=== PATIENT | female | born 1965 | race Caucasian/White ===

== ENCOUNTER 2016-06-05 07:19 | Day surgery (SDC) | payer OTHER ==
[2016-06-05] MEDS ORDERED: LIDOCAINE 2% MDV (20MG/ML) 20ML VIAL IV ONE (14:00)
[2016-06-05] MEDS ORDERED: MIDAZOLAM HCL 2MG/2ML VIAL IV ONE (14:00)
[2016-06-05] MEDS ORDERED: PROPOFOL 10 MG/ML VIAL IV ONE (14:00)
--- NOTE | 2016-06-08 16:43 | Operative Note ---
DATE OF SURGERY: 06/05/2016 Surgeon: Irineo Jensen D.O. REFERRING PHYSICIAN: Joey Sanders PREOPERATIVE DIAGNOSIS: Screening colonoscopy. POSTOPERATIVE DIAGNOSIS: Screening colonoscopy. OPERATION: COLONOSCOPY to the cecum. PROCEDURE: The patient is a 51-year-old female who was brought to the Endoscopy Suite, placed in the supine position and appropriate monitoring was placed including nasal O2, pulse oximetry and blood pressure cuff. The patient was rotated in the left lateral position. Propofol anesthesia was titrated to effect. After go ahead by Anesthesia, digital rectal exam was done. This revealed no internal masses. At this time, a PCF-180AL colonoscope was inserted into the patient's rectum, advanced up the sigmoid, up the descending, over the transverse, down the ascending colon and cecum. Once the cecum was reached it was identified by the appendiceal orifice and ileocecal valve. Respective photographs taken. The scope was then slowly withdrawn inspecting along all mucosal surface areas. There were normal folds and distensibility seen. Once the rectum was reached, retroflexion maneuver was done. There were grade 1 hemorrhoids. At this time, the scope was straightened, gas was evacuated, scope was fully removed. FINDINGS AT THE TIME OF SURGERY: 1. Grade 1 hemorrhoids. 2. Otherwise normal colon. DISCHARGE INSTRUCTIONS: Recommend repeating this in 10 years or sooner if any problems arise. CC: Joey Sanders MTDD
--- NOTE | 2016-06-08 18:12 | Operative Note ---
DATE OF SURGERY: 06/05/2016 Surgeon: Irineo Jensen D.O. REFERRING PHYSICIAN: Joey Sanders PREOPERATIVE DIAGNOSIS: Screening colonoscopy. POSTOPERATIVE DIAGNOSIS: Screening colonoscopy. OPERATION: COLONOSCOPY to the cecum. PROCEDURE: The patient is a 51-year-old female who was brought to the Endoscopy Suite, placed in the supine position and appropriate monitoring was placed including nasal O2, pulse oximetry and . The patient was rotated in the left lateral position. Propofol anesthesia was titrated to effect. After go ahead by Anesthesia, digital rectal exam was done. This revealed no internal masses. At this time, a PCF-180AL colonoscope was inserted into the patient's rectum, advanced up the sigmoid, up the descending, over the transverse, down the colon and cecum. Once the cecum was reached it was identified by the appendiceal orifice and ileocecal valve. photographs taken. The scope was then slowly withdrawn inspecting along all mucosal surface areas. There were normal folds and distensibility seen. Once the rectum was reached, retroflexion maneuver was done. There were grade 1 hemorrhoids. At this time, the scope was straightened, gas was evacuated, scope was removed. FINDINGS AT THE TIME OF SURGERY: 1. Grade 1 hemorrhoids. 2. Otherwise normal colon. DISCHARGE INSTRUCTIONS: Recommend repeating this in 10 years or sooner if any problems arise. CC: Joey MORAN
== END 2016-06-05 09:53 | disposition home or self-care (01) ==
LOC: HOP 07:19
PROVIDERS: ATTEND Surgery
DX: Z12.11 Encounter for screening for malignant neoplasm of colon (principal); K64.0 First degree hemorrhoids; I10 Essential (primary) hypertension